=== PATIENT | female | born 1985 ===

== ENCOUNTER 2024-02-07 09:43 | Outpatient (CLI) | payer OTHER, SELFPAY ==
--- NOTE | 2024-02-10 21:59 | P.PCNPFT_ITS ---
PFT Procedure Performed PFT Procedure Performed Spirometry with Pre/Post Bronchodilator Plethysmography (Lung Vol) Diffusing Cap (DLCO) Flow Vol Loop PFT Interpretation DOS: 02/07/2024 REQUESTING: Emeterio Bergman MD REASON FOR TESTING: Asthma PULMONARY FUNCTION TESTS Results are reliable and reproducible. Repeatability of spirometry FEV1 maneuver pre and post bronchodilator is Grade A. Spirometry: The pre-bronchodilator FEV1 is 1.26 L, 56%, decreased. The pre- bronchodilator FVC is 2.74 L, 103%, normal. The FEV1/FVC ratio is 46%, decreased. After bronchodilator, the FEV1 is 2.08 L, 93%, 66% increase. The post-bronchodilator FVC is 3.59 L, 135%, 31% increase. The FEV1/FVC ratio is 58%, remains decreased. Lung volumes: The total lung capacity is 5.01 L, 132%, mildly increased consistent with hyperinflation. The residual volume is 1.37 L, 114%, normal. The RV/TLC is 27%, normal. Airway resistance is normal. Diffusion: DLCO is 19.9, 90%, normal. The DLCO/VA is 5.10, 102%, normal. Flow volume loop: The flow volume loop shows coving of the expiratory limb consistent with airflow obstruction. IMPRESSION: This study shows a moderately severe obstructive ventilatory impairment with excellent response to bronchodilator, mild hyperinflation, and normal diffusion. Alexandra Geller MD
== END 2024-02-07 09:44 | disposition home or self-care (01) ==
PROVIDERS: PCP Internal Medicine Infectious Disease; Visit Provider Internal Medicine Infectious Disease
DX: J45.909 Unspecified asthma, uncomplicated (principal)
CPT/HCPCS: 94060; 94726; 94729